=== PATIENT | male | born 1985 | race Caucasian/White ===

== ENCOUNTER → 2018-02-27 | Outpatient (CLI) | payer OTHER ==
[2018-02-27 19:02] LABS: Cholesterol 266 mg/dL (0-200); Glucose 108 mg/dL (70-110); Triglycerides >1100.0 mg/dL (0.0-149.0)
[2018-02-27 20:13] LABS: Hemoglobin A1C 5.2 % (4.0-6.0)
== END ==
LOC: LABWHC1 11:53
PROVIDERS: ATTEND Psychiatry & Neurology Psychiatry
DX: Z51.81 Encounter for therapeutic drug level monitoring (principal); Z79.899 Other long term (current) drug therapy
CPT/HCPCS: 36415; 80061; 82947; 83036; 84439; 84443

== ENCOUNTER 2018-03-25 11:58 | Emergency (ER) | payer OTHER ==
[2018-03-25] MEDS ORDERED: methylPREDNISolone SOD SUCCI 125 MG/2 ML VIAL IM ONE (12:54)
[2018-03-25] MEDS ORDERED: BENZONATATE 100 MG CAP PO STA (12:54)
--- NOTE | 2018-03-25 12:55 | ED ---
URI HPI - General Chief Complaint: Upper Respiratory Infection Stated Complaint: cough/congestion Time Seen by Provider: 03/25/18 12:24 Source: patient Mode of arrival: ambulatory Limitations: no limitations - History of Present Illness Initial Comments: 32-year-old male with past medical history of hypertension and hyperlipidemia presenting today for chief complaint of cough sore throat and chills. Patient states the past day he has had cough and sore throat. He states at times he feels he has chills. He states he has not recorded his temperature at home. Upon arrival initial temperature read as afebrile. Patient did feel palpably warm. Patient admits to chills at this time. Patient denies sputum production , neck stiffness, photophobia, rash, ear pain, nausea, vomiting, diarrhea, headache, dizziness. Patient did admit to body aches. Patient denies any chest pain, dyspnea, dyspnea on exertion. Upon arrival patient appears well nontoxic. Vital signs reveal HR 105, consistent with suspect fever. Repeat temperature later in visit 100.8F. she has not had flu vaccination. - Related Data Previous Rx's Medication Instructions Recorded Albuterol Inhaler [Ventolin Hfa 2 puff INHALATION Q4HR PRN #1 12/27/13 Inhaler] inhaler Azithromycin [Zithromax Z-pack] 250 mg PO DIRECTED #6 tab 12/27/13 predniSONE 50 mg PO DAILY #5 tab 12/27/13 Amoxicillin/Potassium Clav 1 each PO Q12HR #20 tab 09/29/14 [Augmentin 875-125 Tablet] Mupirocin 2% Oint [Bactroban Oint] 1 applic TOPICAL TID #1 gm 09/29/14 Oseltamivir [Tamiflu] 75 mg PO Q12HR 5 Days #10 cap 03/25/18 Allergies Allergy/AdvReac Type Severity Reaction Status Date / Time No Known Allergies Allergy Verified 03/25/18 12:14 Review of Systems ROS Statement: Those systems with pertinent positive or pertinent negative responses have been documented in the HPI. ROS Other: All systems not noted in ROS Statement are negative. Past Medical History Past Medical History: Asthma History of Any Multi-Drug Resistant Organisms: None Reported Past Surgical History: No Surgical Hx Reported Past Psychological History: ADD/ADHD, Anxiety Smoking Status: Current every day smoker Past Alcohol Use History: None Reported Past Drug Use History: None Reported General Exam - General Exam Comments Initial Comments: General: The patient is awake and alert, in no distress, and does not appear acutely ill. Eye: Pupils are equal, round and reactive to light, extra-ocular movements are intact. No nystagmus. There is normal conjunctiva bilaterally. No signs of icterus. Ears, nose, mouth and throat: There are moist mucous membranes and no oral lesions. Oropharynx mildly erythematous, no tonsillar enlargement exudates or lesions. Uvula midline. Tympanic membranes within normal limits bilaterally. Anterior cervical lymph nodes neuropathy. Neck: The neck is supple, there is no tenderness or JVD. No nuchal rigidity, no photophobia. Cardiovascular: There is a regular rate and rhythm. No murmur, rub or gallop is appreciated. Respiratory: Lungs are clear to auscultation, respirations are non-labored, breath sounds are equal. No wheezes, stridor, rales, or rhonchi. No findings consistent with consolidation. No abdominal breathing or costal retractions. Dry cough on exam no specific characteristic Gastrointestinal: Soft, non-distended, non-tender abdomen without masses or organomegaly noted. There is no rebound or guarding present. Bowel sounds are unremarkable. Musculoskeletal: Normal ROM, no tenderness. Strength 5/5. Sensation intact. Pulses equal bilaterally 2+. Neurological: A&O x 3. CN II-XII intact, There are no obvious motor or sensory deficits. Coordination appears grossly intact. Speech is normal. Skin: Skin is warm and dry and no rashes or lesions are noted. Psychiatric: Cooperative, appropriate mood & affect, normal judgment. Limitations: no limitations Course Vital Signs 03/25/18 03/25/18 03/25/18 12:12 12:19 14:57 Temperature 98.4 F 100.8 F H Pulse Rate 105 H 85 Respiratory 18 20 18 Rate Blood Pressure 121/81 119/87 O2 Sat by Pulse 96 97 Oximetry Medical Decision Making - Medical Decision Making 32-year-old male, influenza A positive. History consistent with laboratory studies. Chest x-ray negative for acute cardiopulmonary process. Patient will be treated outpatient with Tamiflu and supportive measures. Patient does not appear toxic. At this time I feel patient is stable for discharge with outpatient follow-up and return for any worsening or concerning symptoms. Patient verbalized understanding agreeable plan. Patient discharged appearing well I did discuss the case attending provider Dr. Leal prior to patient's discharge. Patient denied questions upon discharge. - Lab Data Lab Results 03/25/18 03/25/18 Range/Units 13:35 13:35 Influenza Type A RNA Detected H (Not Detectd) Influenza Type B (PCR) Not Detected (Not Detectd) Group A Strep Rapid Negative (Negative) Disposition Clinical Impression: Influenza A Disposition: HOME SELF-CARE Condition: Good Instructions (If sedation given, give patient instructions): Influenza (ED) Additional Instructions: Please use medication as discussed. Please follow-up with family doctor in the next 2 days of symptoms have not improved. Please return to emergency room if the symptoms increase or worsen or for any other concerns. Prescriptions: Oseltamivir [Tamiflu] 75 mg PO Q12HR 5 Days #10 cap Is patient prescribed a controlled substance at d/c from ED?: No Referrals: Katharina Galvan DO [Primary Care Provider] - 1-2 days Time of Disposition: 14:28
--- NOTE | 2018-03-25 13:18 | XR ---
EXAMINATION TYPE: XR chest 2V DATE OF EXAM: 03/25/2018 COMPARISON: 12/27/13 HISTORY: Chest pain TECHNIQUE: Frontal and lateral views of the chest are obtained. FINDINGS: There is no focal air space opacity. No evidence for pneumothorax. No pleural effusion. The cardiac silhouette size is within normal limits. The osseous structures are grossly intact. IMPRESSION: 1. No acute cardiopulmonary process.
[2018-03-25] MEDS ORDERED: predniSONE 20 MG TAB PO STA (13:40)
[2018-03-25] MEDS ORDERED: ACETAMINOPHEN TAB 500 MG TAB PO STA (14:55)
[2018-03-25 14:58] VITALS: BP 119/87; PULSE 85; RESP 18; TEMP 100.8
== END 2018-03-25 15:02 | disposition home or self-care (01) ==
LOC: EC 11:58
DX: J10.1 Influenza due to other identified influenza virus with other respiratory manifestations (principal); F17.200 Nicotine dependence, unspecified, uncomplicated
CPT/HCPCS: 87081; 87430; 87502; 71046; 99283; J7512

== ENCOUNTER → 2018-04-10 | Outpatient (CLI) | payer OTHER ==
[2018-04-10 11:16] LABS: Basophils # (A) 0.1 k/uL (0-0.2); Basophils % (A) 1 %; Eosinophils # (A) 0.2 k/uL (0-0.7); Eosinophils % (A) 3 %; HCT 45.4 % (39.0-53.0); HGB 15.2 gm/dL (13.0-17.5); Lymphocytes # (A) 1.8 k/uL (1.0-4.8); Lymphocytes % (A) 29 %; MCH 29.1 pg (25.0-35.0); MCHC 33.5 g/dL (31.0-37.0); MCV 86.9 fL (80.0-100.0); Mean Platelet Volume 7.7; Monocytes # (A) 0.5 k/uL (0-1.0); Monocytes % (A) 7 %; Neutrophils # (A) 3.6 k/uL (1.3-7.7); Neutrophils % (A) 58 %; Platelet Count 261 k/uL (150-450); RBC 5.23 m/uL (4.30-5.90); RDW 13.7 % (11.5-15.5); WBC 6.2 k/uL (3.8-10.6)
[2018-04-10 18:44] LABS: Amylase 35 U/L (23-121); Cholesterol 198 mg/dL (0-200); Lipase 35 U/L (14-60)
[2018-04-11 08:30] LABS: Glucose 94
[2018-04-11 08:31] LABS: Potassium 4.4; Sodium 141
[2018-04-11 08:32] LABS: Chloride 105
[2018-04-11 08:33] LABS: Carbon Dioxide 24.5
[2018-04-11 08:34] LABS: Anion Gap 11.5
[2018-04-11 08:39] LABS: Calcium 9.8
[2018-04-11 08:41] LABS: Total Protein 6.7
[2018-04-11 08:43] LABS: Albumin/Globulin Ratio 1.79; Total Bilirubin 0.4
[2018-04-11 08:44] LABS: AST 28
[2018-04-11 08:45] LABS: ALT 33; Alkaline Phosphatase 61
== END | disposition home or self-care (01) ==
LOC: LABWHC1 10:26
PROVIDERS: ATTEND Family Medicine
DX: E78.1 Pure hyperglyceridemia (principal); E78.5 Hyperlipidemia, unspecified
CPT/HCPCS: 36415; 80053; 80061; 82150; 83690; 83721; 85025

== ENCOUNTER 2018-04-30 22:34 | Emergency (ER) | payer OTHER ==
[2018-04-30 23:26] VITALS: RESP 18
[2018-05-01 01:06] LABS: Appearance,Urine Clear (Clear); Bilirubin,Urine Negative (Negative); Blood,Urine Negative (Negative); Color,Urine Light Yellow; Glucose,Urine (UA) Negative (Negative); Ketones,Urine Negative (Negative); Leukocyte Esterase,Urine Negative (Negative); Nitrite,Urine Negative (Negative); Protein,Urine Negative (Negative); Specific Gravity,Urine 1.009 (1.001-1.035); Urobilinogen,Urine <2.0 mg/dL (<2.0)
--- NOTE | 2018-05-01 02:18 | ED ---
General Adult HPI - General Source: patient, RN notes reviewed, old records reviewed Mode of arrival: ambulatory Limitations: no limitations <Jack Pearson - Last Filed: 05/01/18 02:20> <Cortney Alfred - Last Filed: 05/03/18 01:01> - General Chief complaint: Urogenital Stated complaint: Abd Pain Time Seen by Provider: 05/01/18 00:21 - History of Present Illness Initial comments: 32-year-old male patient no pertinent past medical history presents to ED with chief complaint of blood in his sperm. Patient reports that he first noticed this yesterday. Patient states that he had one occurrence with a moderate amount of blood in his sperm. On 3 evaluations of his sperm since his sperm is now at a almost normal color, small amount of rust tinged per patient. Patient is not having any pain. Patient denies any testicular any penile pain. Patient has any ulcerations or any urethral discharge. Patient does wish to have evaluation of a "bump" in his perineum. Patient denies all other complaints. Patient reports that he wishes to be checked for STD eyes, however does not wish to be treated for STI empirically. Systemic: Pt denies fatigue, myalgia, fever/chills, rash. Pt denies weakness, night sweats, weight loss. Neuro: Pt denies headache, visual disturbances, syncope or pre-syncope. HEENT: Pt denies ocular discharge or irritation, otalgia, rhinorrhea, pharyngitis or notable lymphadenopathy. Cardiopulmonary: Pt denies chest pain, SOB, heart palpitations, dyspnea on exertion. Abdominal/GI: Pt denies abdominal pain, n/v/d. : Pt denies dysuria, burning w/ urination, frequency/urgency. Denies new onset urinary or bowel incontinence. MSK: Pt denies myalgia, loss of strength or function in extremities. Neuro: Pt denies new onset weakness, paresthesias. (Jack Pearson) - Related Data Previous Rx's Medication Instructions Recorded Albuterol Inhaler [Ventolin Hfa 2 puff INHALATION Q4HR PRN #1 12/27/13 Inhaler] inhaler Azithromycin [Zithromax Z-pack] 250 mg PO DIRECTED #6 tab 12/27/13 predniSONE 50 mg PO DAILY #5 tab 12/27/13 Amoxicillin/Potassium Clav 1 each PO Q12HR #20 tab 09/29/14 [Augmentin 875-125 Tablet] Mupirocin 2% Oint [Bactroban Oint] 1 applic TOPICAL TID #1 gm 09/29/14 Oseltamivir [Tamiflu] 75 mg PO Q12HR 5 Days #10 cap 03/25/18 Allergies Allergy/AdvReac Type Severity Reaction Status Date / Time No Known Allergies Allergy Verified 03/25/18 12:14 Review of Systems ROS Other: All systems not noted in ROS Statement are negative. <Jack Pearson - Last Filed: 05/01/18 02:20> ROS Other: All systems not noted in ROS Statement are negative. <Cortney Alfred - Last Filed: 05/03/18 01:01> ROS Statement: Those systems with pertinent positive or pertinent negative responses have been documented in the HPI. Past Medical History Past Medical History: Asthma History of Any Multi-Drug Resistant Organisms: None Reported Past Surgical History: No Surgical Hx Reported Past Psychological History: ADD/ADHD, Anxiety Smoking Status: Current every day smoker Past Alcohol Use History: None Reported Past Drug Use History: None Reported <Jack Pearson - Last Filed: 05/01/18 02:20> General Exam Limitations: no limitations <Jack Pearson - Last Filed: 05/01/18 02:20> - General Exam Comments Initial Comments: Constitutional: NAD, AOX3, Pt has pleasant affect. HEENT: NC/AT, trachea midline, neck supple, no lymphadenopathy. Posterior pharynx non erythematous, without exudates. External ears appear normal, without discharge. Mucous membranes moist. Eyes PERRLA, EOM intact. There is no scleral icterus. No pallor noted. Cardiopulmonary: RRR, no murmurs, rubs or gallops, no JVD noted. Lungs CTAB in anterior and posterior bullard. No peripheral edema. Abdominal exam: Abdomen soft and non-distended. Abdomen non-tender to palpation in all 4 quadrants. Bowel sounds active in LLQ. No hepatosplenomegaly. No ecchymosis Neuro: CN II-XII grossly intact. No nuchal rigidity. MSK: No posterior calf tenderness bilaterally, homans sign negative bilaterally. Posterior tibialis and radial pulse +2 bilaterally. Sensation intact in upper and lower extremities. Full active ROM in upper and lower extremities, 5/5 stregnth. Gu: No ulcerations or lesions noted on ES or scrotum. No penile discharge noted. No testicular tenderness. Cremasteric reflex intact. No high riding testicle or blue dot sign. Perineum evaluated, area in question is a skin tag. No erythema or fluctuance or discharge. (Jack Pearson) Course Vital Signs 04/30/18 05/01/18 23:22 02:20 Temperature 98.0 F 97.5 F L Pulse Rate 78 68 Respiratory 18 18 Rate Blood Pressure 150/80 135/96 O2 Sat by Pulse 100 98 Oximetry Medical Decision Making <Jack Pearson - Last Filed: 05/01/18 02:20> <Cortney Alfred - Last Filed: 05/03/18 01:01> - Medical Decision Making 32-year-old male patient no pertinent past medical history presents to ED with chief complaint of blood in his sperm. Patient reports that he first noticed this yesterday. Patient states that he had one occurrence with a moderate amount of blood in his sperm. On 3 evaluations of his sperm since his sperm is now at a almost normal color, small amount of rust tinged per patient. Patient is not having any pain. Patient denies any testicular any penile pain. Patient has any ulcerations or any urethral discharge. Patient does wish to have evaluation of a "bump" in his perineum. Patient denies all other complaints. Patient reports that he wishes to be checked for STD eyes, however does not wish to be treated for STI empirically. Patient vital signs stable, afebrile. Physical exam displayed: No ulcerations or lesions noted on ES or scrotum. No penile discharge noted. No testicular tenderness. Cremasteric reflex intact. No high riding testicle or blue dot sign. Perineum evaluated, area in question is a skin tag. No erythema or fluctuance or discharge. Laboratory investigations displayed a negative urinalysis. Findings were explained to patient at length. Patient was understanding. Patient to follow up with primary care provider for further evaluation. Patient return to ER if any new signs symptoms develop. Case discussed with Dr. Alfred. (Jack Pearson) I was available for consultation in the emergency department. The history and physical exam were done by the midlevel provider. I was consulted for this patient's care. I reviewed the case with the midlevel provider and based on their presentation of the patient, I agree with the assessment, medical decision making and plan of care as documented. (Cortney Alfred) - Lab Data Lab Results 04/30/18 04/30/18 04/30/18 Range/Units 23:52 23:52 23:52 Urine Color Light Yellow Urine Appearance Clear (Clear) Urine pH 6.0 (5.0-8.0) Ur Specific [place] 1.009 (1.001-1.035) Urine Protein Negative (Negative) Urine Glucose (UA) Negative (Negative) Urine Ketones Negative (Negative) Urine Blood Negative (Negative) Urine Nitrite Negative (Negative) Urine Bilirubin Negative (Negative) Urine Urobilinogen <2.0 (<2.0) mg/dL Ur Leukocyte Esterase Negative (Negative) Chlamydia Source Urine Chlamydia DNA (PCR) Negative (Neg,Equiv) N. gonorrhoeae Source Urine N.gonorrhoeae DNA Probe Negative (Neg,Equiv) Disposition Is patient prescribed a controlled substance at d/c from ED?: No <Jack Pearson - Last Filed: 05/01/18 02:20> <Cortney Alfred - Last Filed: 05/03/18 01:01> Clinical Impression: Hematospermia Disposition: HOME SELF-CARE Condition: Stable Additional Instructions: Patient to adhere to previously discussed treatment plan and will take medication(s) as directed. Patient to follow up with PCP in 1-2 days. Patient to return to ED if symptoms do not improve. Please follow-up with primary care provider in 1-2 days for further evaluation. Please return to ER if condition worsens or changes in any way. Follow-up with urology in one to 2 days. Referrals: Katharina Galvan DO [Primary Care Provider] - 1-2 days Dm Mujica MD [STAFF PHYSICIAN] - 1-2 days
[2018-05-01 02:21] VITALS: BP 135/96; PULSE 68; TEMP 97.5
[2018-05-02 15:21] LABS: C. trachomatis,PCR Negative (Neg,Equiv); Chlamydia trachomatis Source Urine
[2018-05-02 16:33] LABS: N. gonorrhoeae,PCR Negative (Neg,Equiv); Neisseria Source Urine
== END 2018-05-01 02:23 | disposition home or self-care (01) ==
LOC: EC 22:34
DX: R36.1 Hematospermia (principal); F17.200 Nicotine dependence, unspecified, uncomplicated
CPT/HCPCS: 81003; 87491; 87591; 99284

== ENCOUNTER → 2018-07-21 | Outpatient (CLI) | payer OTHER ==
[2018-07-21 18:09] LABS: African American GFR (CKD) 145.7 (60.0-200.0); Cholesterol 258 mg/dL (0-200); Glucose 92 mg/dL (70-110); Lithium <0.1 mmol/L (1.0-1.2)
[2018-07-21 18:40] LABS: Triglycerides >1100.0 mg/dL (0.0-149.0)
[2018-07-21 21:20] LABS: Hemoglobin A1C 5.4 % (4.0-6.0)
== END | disposition home or self-care (01) ==
LOC: LABWHC1 12:14
PROVIDERS: ATTEND Psychiatry & Neurology Psychiatry
DX: Z79.899 Other long term (current) drug therapy (principal)
CPT/HCPCS: 36415; 80061; 80178; 82565; 82947; 83036; 84439; 84443; 84520

== ENCOUNTER → 2018-11-17 | Outpatient (CLI) | payer OTHER ==
[2018-11-17 19:21] LABS: African American GFR (CKD) 115.7 (60.0-200.0); Chol/HDL Ratio 6.13; LDL Cholesterol,Calculated 100.4 mg/dL (0.0-131.0); Lithium 0.4 mmol/L (0.5-1.2); VLDL Calculation 53.6 mg/dL (5.00-40.00)
[2018-11-17 20:22] LABS: Hemoglobin A1C 5.2 % (4.0-6.0)
== END | disposition home or self-care (01) ==
LOC: LABWHC1 10:02
PROVIDERS: ATTEND Psychiatry & Neurology Psychiatry
DX: Z51.81 Encounter for therapeutic drug level monitoring (principal); Z79.899 Other long term (current) drug therapy
CPT/HCPCS: 36415; 80061; 80178; 82565; 82947; 83036; 84439; 84443; 84520

== ENCOUNTER 2020-04-15 00:08 | Emergency (ER) | payer OTHER ==
[2020-04-15 00:15] VITALS: BP 129/88; PULSE 90; RESP 18; TEMP 99.2
--- NOTE | 2020-04-15 00:42 | ED ---
General Adult HPI - General Stated complaint: Covid exposure, cough Time Seen by Provider: 04/15/20 00:14 Source: patient Mode of arrival: ambulatory Limitations: no limitations - History of Present Illness Initial comments: 34-year-old male presents emergency Department with chief complaint of covoid exposure. Patient states he is exposed to covid. Patient denies any specific complaints denies any shortness of breath fevers chills nausea vomiting diarrhea constipation no significant cough. - Related Data Previous Rx's Medication Instructions Recorded Albuterol Inhaler (Mhu) [Ventolin 2 puff INHALATION Q4HR PRN #1 12/27/13 Hfa Inhaler (Mhu)] inhaler Azithromycin [Zithromax Z-pack (6 250 mg PO DIRECTED #6 tab 12/27/13 tabs)] predniSONE 50 mg PO DAILY #5 tab 12/27/13 Amoxicillin/Potassium Clav 1 each PO Q12HR #20 tab 09/29/14 [Augmentin 875-125 Tablet] Mupirocin 2% Oint [Bactroban Oint] 1 applic TOPICAL TID #1 gm 09/29/14 Oseltamivir [Tamiflu] 75 mg PO Q12HR 5 Days #10 cap 03/25/18 Allergies Allergy/AdvReac Type Severity Reaction Status Date / Time No Known Allergies Allergy Verified 04/15/20 00:15 Review of Systems ROS Statement: Those systems with pertinent positive or pertinent negative responses have been documented in the HPI. ROS Other: All systems not noted in ROS Statement are negative. Past Medical History Past Medical History: Asthma History of Any Multi-Drug Resistant Organisms: None Reported Past Surgical History: No Surgical Hx Reported Past Psychological History: ADD/ADHD, Anxiety Smoking Status: Current every day smoker Past Alcohol Use History: None Reported Past Drug Use History: None Reported General Exam Limitations: no limitations General appearance: alert, in no apparent distress Head exam: Present: atraumatic, normocephalic, normal inspection Eye exam: Present: normal appearance, PERRL, EOMI. Absent: scleral icterus, conjunctival injection, periorbital swelling ENT exam: Present: normal exam, normal oropharynx, mucous membranes moist Neck exam: Present: normal inspection, full ROM. Absent: tenderness, meningismus, lymphadenopathy Respiratory exam: Present: normal lung sounds bilaterally. Absent: respiratory distress, wheezes, rales, rhonchi, stridor Cardiovascular Exam: Present: regular rate, normal rhythm, normal heart sounds. Absent: systolic murmur, diastolic murmur, rubs, gallop, clicks GI/Abdominal exam: Present: soft, normal bowel sounds. Absent: distended, tenderness, guarding, rebound, rigid Neurological exam: Present: alert, oriented X3 Skin exam: Present: warm, dry, intact, normal color. Absent: rash Course Vital Signs 04/15/20 00:14 Temperature 99.2 F Pulse Rate 90 Respiratory 18 Rate Blood Pressure 129/88 O2 Sat by Pulse 97 Oximetry Medical Decision Making - Medical Decision Making Patient had a negative test is asymptomatic patient be discharged in stable condition. - Lab Data Lab Results 04/15/20 Range/Units 00:24 Coronavirus (PCR) Not Detected (Not Detectd) Disposition Clinical Impression: Exposure to COVID-19 virus Disposition: HOME SELF-CARE Condition: Stable Instructions (If sedation given, give patient instructions): Coronavirus Disease 2019 (COVID-19) Additional Instructions: Please return to the Emergency Department if symptoms worsen or any other concerns. Is patient prescribed a controlled substance at d/c from ED?: No Referrals: None,Stated [Primary Care Provider] - 1-2 days Time of Disposition: 01:25
== END 2020-04-15 01:33 | disposition home or self-care (01) ==
LOC: EC 00:08
DX: Z20.822 Contact with and (suspected) exposure to COVID-19 (principal); F17.200 Nicotine dependence, unspecified, uncomplicated; J45.909 Unspecified asthma, uncomplicated; F41.9 Anxiety disorder, unspecified
CPT/HCPCS: 87635; 99283

== ENCOUNTER 2020-05-10 15:09 | Emergency (ER) | payer OTHER ==
[2020-05-10 15:18] VITALS: PULSE 102; TEMP 98.8
--- NOTE | 2020-05-10 16:42 | ED ---
URI HPI - General Chief Complaint: Upper Respiratory Infection Stated Complaint: COVID Exposure Time Seen by Provider: 05/10/20 16:26 Source: patient Mode of arrival: ambulatory Limitations: no limitations - History of Present Illness Initial Comments: Patient is a 34-year-old male presenting to the emergency Department with concerns of Covid. Patient states he was exposed to his mother that recently tested positive. Patient states yesterday he had a headache and a small cough. He denies any fevers or chills, no shortness of breath or chest pains. He denies any nausea or vomiting, no diarrhea. He states he's been eating and drinking as normal. He has no further complaints at this time. Upon arrival to the ER, his vital signs are stable. - Related Data Previous Rx's Medication Instructions Recorded Albuterol Inhaler (Mhu) [Ventolin 2 puff INHALATION Q4HR PRN #1 12/27/13 Hfa Inhaler (Mhu)] inhaler Azithromycin [Zithromax Z-pack (6 250 mg PO DIRECTED #6 tab 12/27/13 tabs)] predniSONE 50 mg PO DAILY #5 tab 12/27/13 Amoxicillin/Potassium Clav 1 each PO Q12HR #20 tab 09/29/14 [Augmentin 875-125 Tablet] Mupirocin 2% Oint [Bactroban Oint] 1 applic TOPICAL TID #1 gm 09/29/14 Oseltamivir [Tamiflu] 75 mg PO Q12HR 5 Days #10 cap 03/25/18 Allergies Allergy/AdvReac Type Severity Reaction Status Date / Time No Known Allergies Allergy Verified 05/10/20 15:18 Review of Systems ROS Statement: Those systems with pertinent positive or pertinent negative responses have been documented in the HPI. ROS Other: All systems not noted in ROS Statement are negative. Past Medical History Past Medical History: Asthma History of Any Multi-Drug Resistant Organisms: None Reported Past Surgical History: No Surgical Hx Reported Past Psychological History: ADD/ADHD, Anxiety Smoking Status: Current every day smoker Past Alcohol Use History: None Reported Past Drug Use History: None Reported General Exam - General Exam Comments Initial Comments: GENERAL: Patient is well-developed and well-nourished. Patient is nontoxic and in no acute distress. HEAD: Atraumatic, normocephalic. EYES: Pupils equal round and reactive to light, extraocular movements intact, sclera anicteric, conjunctiva are normal. Eyelids were unremarkable. ENT: TMs normal, nares patent, oropharynx clear without exudates. Moist mucous membranes. NECK: Normal range of motion, supple without lymphadenopathy or JVD. LUNGS: Unlabored respirations. Breath sounds clear to auscultation bilaterally and equal. No wheezes rales or rhonchi. HEART: Regular rate and rhythm without murmurs, rubs or gallops. ABDOMEN: Soft, nontender, normoactive bowel sounds. No guarding, no rebound. No masses appreciated. : Deferred MUSCULOSKELETAL: Normal extremities with adequate strength and normal range of motion, no pitting or edema. No clubbing or cyanosis. NEUROLOGICAL: Patient is alert and oriented x 3. Motor and sensory are also intact. Cranial nerves II through XII grossly intact. Symmetrical smile. Normal speech, normal gait. PSYCH: Normal mood, normal affect. SKIN: Warm, Dry, normal turgor, no rashes or lesions noted. Limitations: no limitations Course Vital Signs 05/10/20 15:16 Temperature 98.8 F Pulse Rate 102 H Respiratory 20 Rate Blood Pressure 148/94 O2 Sat by Pulse 97 Oximetry Medical Decision Making - Medical Decision Making Patient is a 34-year-old male with history of mild asthma, presenting for recent Covid exposure. He's had a headache and a mild cough since yesterday. His vitals are stable, afebrile, his exam is unremarkable. Rapid Covid test is positive. Patient does meet criteria for Covid antibody therapy secondary to BMI, however patient declines. He can't treat his symptoms with o [id number] medications as well as Tylenols Motrin. Patient is stable for discharge. Patient is in agreement with this plan of care. Return parameters were discussed with the patient and they verbalized understanding. Case discussed with . - Lab Data Lab Results 05/10/20 Range/Units 16:06 Coronavirus (PCR) Detected A (Not Detectd) Disposition Clinical Impression: COVID-19 Disposition: HOME SELF-CARE Condition: Stable Instructions (If sedation given, give patient instructions): Coronavirus Disease 2019 (COVID-19) Additional Instructions: Please return to the Emergency Department if symptoms worsen or any other concerns. Take Tylenol or Motrin for your symptoms, [id number] cough medications. Is patient prescribed a controlled substance at d/c from ED?: No Referrals: None,Stated [Primary Care Provider] - 1-2 days Time of Disposition: 17:00
[2020-05-10 17:04] VITALS: RESP 18
[2020-05-10 17:11] VITALS: BP 158/85
== END 2020-05-10 17:11 | disposition home or self-care (01) ==
LOC: EC 15:09
DX: U07.1 COVID-19 (principal); J45.909 Unspecified asthma, uncomplicated; F41.9 Anxiety disorder, unspecified; F90.9 Attention-deficit hyperactivity disorder, unspecified type; F17.200 Nicotine dependence, unspecified, uncomplicated
CPT/HCPCS: 87635; 99284

== ENCOUNTER 2021-06-08 19:17 | Emergency (ER) | payer OTHER ==
[2021-06-08 19:26] VITALS: BP 120/68; PULSE 100; RESP 18; TEMP 98.3
--- NOTE | 2021-06-08 21:09 | XR ---
EXAMINATION TYPE: XR chest 2V DATE OF EXAM: 06/08/2021 9:04 PM COMPARISON: Chest radiographs from 03/25/2018 TECHNIQUE: XR chest 2V Frontal and lateral views of the chest. CLINICAL INDICATION:Male, 35 years old with history of chest pain, cough; FINDINGS: Lungs/Pleura: There is no evidence of pleural effusion, focal consolidation, or pneumothorax. Pulmonary vascularity: Unremarkable. Heart/mediastinum: Cardiomediastinal silhouette is unremarkable. Musculoskeletal: No acute osseous pathology. IMPRESSION: No acute cardiopulmonary disease/process.
--- NOTE | 2021-06-08 21:34 | ED ---
URI HPI - General Chief Complaint: Upper Respiratory Infection Stated Complaint: Chest Pain, Headache, Cough Time Seen by Provider: 06/08/21 20:36 Source: patient, RN notes reviewed Mode of arrival: ambulatory Limitations: no limitations - History of Present Illness Initial Comments: This is a 35-year-old male who presents to the emergency department for coughing and congestion. States that symptoms have been present for 2 days. One of his friends tested positive for Covid, and he is worried that he may have caught this from him. Denies any fevers or chills. He does report some sharp chest pain with inhalation. Denies any shortness of breath. He has not taken any mhyy-mtl-[id number] treatment for this. MD Complaint: cough, nasal congestion - Related Data Previous Rx's Medication Instructions Recorded Albuterol Inhaler (Mhu) [Ventolin 2 puff INHALATION Q4HR PRN #1 12/27/13 Hfa Inhaler (Mhu)] inhaler Azithromycin [Zithromax Z-pack (6 250 mg PO DIRECTED #6 tab 12/27/13 tabs)] predniSONE 50 mg PO DAILY #5 tab 12/27/13 Amoxicillin/Potassium Clav 1 each PO Q12HR #20 tab 09/29/14 [Augmentin 875-125 Tablet] Mupirocin 2% Oint [Bactroban Oint] 1 applic TOPICAL TID #1 gm 09/29/14 Oseltamivir [Tamiflu] 75 mg PO Q12HR 5 Days #10 cap 03/25/18 Allergies Allergy/AdvReac Type Severity Reaction Status Date / Time No Known Allergies Allergy Verified 05/10/20 15:18 Review of Systems ROS Statement: Those systems with pertinent positive or pertinent negative responses have been documented in the HPI. ROS Other: All systems not noted in ROS Statement are negative. Constitutional: Denies: fever, chills ENT: Reports: congestion. Denies: ear pain, throat pain Respiratory: Reports: cough. Denies: dyspnea Cardiovascular: Denies: chest pain, palpitations Gastrointestinal: Denies: abdominal pain, nausea, vomiting, diarrhea Skin: Denies: rash Neurological: Reports: headache Past Medical History Past Medical History: Asthma History of Any Multi-Drug Resistant Organisms: None Reported Past Surgical History: No Surgical Hx Reported Past Psychological History: ADD/ADHD, Anxiety Smoking Status: Current every day smoker Past Alcohol Use History: None Reported Past Drug Use History: None Reported General Exam Limitations: no limitations General appearance: alert, in no apparent distress Head exam: Present: atraumatic, normocephalic, normal inspection Respiratory exam: Present: normal lung sounds bilaterally. Absent: respiratory distress, wheezes, rales, rhonchi, stridor Cardiovascular Exam: Present: regular rate, normal rhythm, normal heart sounds. Absent: systolic murmur, diastolic murmur, rubs, gallop, clicks Neurological exam: Present: alert, oriented X3, CN II-XII intact Psychiatric exam: Present: normal affect, normal mood Skin exam: Present: warm, dry, intact, normal color. Absent: rash Course Vital Signs 06/08/21 19:25 Temperature 98.3 F Pulse Rate 100 Respiratory 18 Rate Blood Pressure 120/68 O2 Sat by Pulse 96 Oximetry Medical Decision Making - Medical Decision Making This is a 35-year-old male who presents to the emergency department for coughing and congestion. COVID and influenza testing negative. Chest x-ray revealed no acute cardiopulmonary process. Patient advised that this is likely a viral infection and we do not begin antibiotics until approximately the 10 day rosalee. Advised to continue with symptomatic care, including remaining well-hydrated, using ibuprofen and Tylenol as needed for fevers and body aches, and using [id number] cold medication. Return precautions reviewed in depth, the patient is instructed to return to the emergency department with any new, worsening, or concerning symptoms. Patient verbalized understanding. This case was discussed in detail with the attending ED physician. Presentation, findings, and treatment plan discussed in detail as well. - Lab Data Lab Results 06/08/21 Range/Units 19:27 Influenza Type A (PCR) Not Detected (Not Detectd) Influenza Type B (PCR) Not Detected (Not Detectd) RSV (PCR) Not Detected (Not Detectd) SARS-CoV-2 (PCR) Not Detected (Not Detectd) - Radiology Data Radiology results: report reviewed, image reviewed Disposition Clinical Impression: Viral upper respiratory illness Disposition: HOME SELF-CARE Instructions (If sedation given, give patient instructions): Upper Respiratory Infection (ED) Additional Instructions: Return to the emergency department with any new, worsening, or concerning symptoms. Continue with symptomatic treatment, including remaining well hydrated, using ibuprofen and Tylenol for pain and fevers, and using [id number] cold medication as needed. Follow up with your primary care provider in 1 to 2 days. Is patient prescribed a controlled substance at d/c from ED?: No Referrals: None,Stated [Primary Care Provider] - 1-2 days
== END 2021-06-08 21:56 | disposition home or self-care (01) ==
LOC: EC 19:17
DX: J06.9 Acute upper respiratory infection, unspecified (principal); Z20.822 Contact with and (suspected) exposure to COVID-19; J45.909 Unspecified asthma, uncomplicated; F17.200 Nicotine dependence, unspecified, uncomplicated; Z79.51 Long term (current) use of inhaled steroids; Z79.52 Long term (current) use of systemic steroids
CPT/HCPCS: 71046; 87636; 99284

== ENCOUNTER 2022-09-17 17:25 | Emergency (ER) | payer OTHER ==
[2022-09-17 17:29] VITALS: TEMP 98.2
--- NOTE | 2022-09-17 19:07 | ED ---
General Adult HPI - General Chief complaint: Extremity Injury, Upper Stated complaint: right shoulder pain Time Seen by Provider: 09/17/22 18:30 Source: patient Mode of arrival: ambulatory Limitations: no limitations - History of Present Illness Initial comments: Dictation was produced using [employer] dictation software. please excuse any grammatical, word or spelling errors. Chief Complaint: 37-year-old male with 3-4 days of shoulder pain History of Present Illness: 37-year-old male presents to emergency department right shoulder pain. Patient has been having shoulder pain for the last 3-4 days. Patient states he woke more pain. States that in turn shoulder. Patient also trauma. No setting. The ROS documented in this emergency department record has been reviewed and confirmed by me. Those systems with pertinent positive or negative responses have been documented in the HPI. All other systems are other negative and/or noncontributory. - Related Data Previous Rx's Medication Instructions Recorded Albuterol Inhaler [Ventolin Hfa 2 puff INHALATION Q4HR PRN #1 12/27/13 Inhaler] inhaler Azithromycin [Zithromax Z-pack (6 250 mg PO DIRECTED #6 tab 12/27/13 tabs)] predniSONE 50 mg PO DAILY #5 tab 12/27/13 Amoxicillin/Potassium Clav 1 each PO Q12HR #20 tab 09/29/14 [Augmentin 875-125 Tablet] Mupirocin 2% Oint [Bactroban Oint] 1 applic TOPICAL TID #1 gm 09/29/14 Oseltamivir [Tamiflu] 75 mg PO Q12HR 5 Days #10 cap 03/25/18 Allergies Allergy/AdvReac Type Severity Reaction Status Date / Time No Known Allergies Allergy Verified 09/17/22 17:28 Review of Systems ROS Statement: Those systems with pertinent positive or pertinent negative responses have been documented in the HPI. ROS Other: All systems not noted in ROS Statement are negative. Past Medical History Past Medical History: Asthma History of Any Multi-Drug Resistant Organisms: None Reported Past Surgical History: No Surgical Hx Reported Past Psychological History: ADD/ADHD, Anxiety Smoking Status: Current every day smoker Past Alcohol Use History: None Reported Past Drug Use History: None Reported General Exam - General Exam Comments Initial Comments: PHYSICAL EXAM: General Impression: Alert and oriented x3, not in acute distress HEENT: Normocephalic atraumatic, extra-ocular movements intact, pupils equal and reactive to light bilaterally, mucous membranes moist. Cardiovascular: Heart regular rate and rhythm Chest: Able to complete full sentences, no retractions, no tachypnea Musculoskeletal: Pulses present and equal in all extremities, no peripheral edema Motor: no focal deficits noted Right shoulder: With active abduction, pain elicited with internal rotation of the shoulder Neurological: CN II-XII grossly intact, no focal motor or sensory deficits noted Skin: Intact with no visualized rashes Psych: Normal affect and mood Limitations: no limitations Course Vital Signs 09/17/22 17:26 Temperature 98.2 F Pulse Rate 87 Respiratory 20 Rate Blood Pressure 121/82 O2 Sat by Pulse 98 Oximetry Medical Decision Making - Medical Decision Making Was pt. sent in by a medical professional or institution (DIANA Overton, HALL MANAGER, urgent care, hospital, or alf...) When possible be specific @ -No Did you speak to anyone other than the patient for history (EMS, parent, family, police, friend...)? What history was obtained from this source @ -No Did you review nursing and triage notes (agree or disagree)? Why? @ -I reviewed and agree with nursing and triage notes Were old charts reviewed (outside hosp., previous admission, EMS record, old EKG, old radiological studies, urgent care reports/EKG's, alf records)? Report findings @ -No old charts were reviewed Differential Diagnosis (chest pain, altered mental status, abdominal pain women, abdominal pain men, vaginal bleeding, musculoskeletal, weakness, fever, dyspnea, syncope, headache, dizziness, GI bleed, back pain, seizure, CVA, palpatations, mental health)? @ -not applicable EKG interpreted by me (3pts min.). @ -None done X-rays interpreted by me (1pt min.). @ -Shoulder x-ray is unremarkable CT interpreted by me (1pt min.). @ -None done U/S interpreted by me (1pt. min.). @ -None done What testing was considered but not performed or refused? (CT, X-rays, U/S, labs)? Why? @ -None What meds were considered but not given or refused? Why? @ -None Did you discuss the management of the patient with other professionals (professionals i.e. Dr., PA, HALL MANAGER, lab, RT, psych nurse, social work administrator, early childhood worker, teacher, senior officer, window caser)? Give summary @ -No Was smoking cessation discussed for >3mins.? @ -No Was critical care preformed (if so, how long)? @ -No Were there social determinants of health that impacted care today? How? (Homelessness, low income, unemployed, alcoholism, drug addiction, transportati on, low edu. Level, literacy, decrease access to med. care, fci, rehab)? @ -No Was there de-escalation of care discussed even if they declined (Discuss DNR or withdrawal of care, Hospice)? DNR status @ -No What co-morbidities impacted this encounter? (DM, HTN, Smoking, COPD, CAD, Cancer, CVA, ARF, Chemo, Hep., AIDS, mental health diagnosis, sleep apnea, morbid obesity)? @ -None Was patient admitted / discharged? Hospital course, mention meds given and route, prescriptions, significant lab abnormalities, going to OR and other pertinent info. @ -37-year-old male with shoulder pain. Vital signs stable. Clinical presentation suspicious for rotator cuff injury. Patient discharged given referral to orthopedic surgery for outpatient management. Undiagnosed new problem with uncertain prognosis? @ -No Drug Therapy requiring intensive monitoring for toxicity (Heparin, Nitro, Insulin, Cardizem)? @ -No Were any procedures done? @ -No Diagnosis/symptom? Acute, or Chronic, or Acute on Chronic? Uncomplicated (without systemic symptoms) or Complicated (systemic symptoms)? @ -Rotator cuff injury Side effects of treatment? @ -No Exacerbation, Progression, or Severe Exacerbation? @ -No Poses a threat to life or bodily function? How? (Chest pain, [place], [place], pneumonia, PE, COPD, DKA, ARF, appy, cholecystitis, CVA, Diverticulitis, Homicidal, Suicidal, threat to staff... and all critical care pts) @ -yes Disposition Clinical Impression: Shoulder pain Disposition: HOME SELF-CARE Condition: Good Instructions (If sedation given, give patient instructions): Shoulder Pain (ED) Is patient prescribed a controlled substance at d/c from ED?: No Referrals: Jack Phan MD [STAFF PHYSICIAN] - 1-2 days Time of Disposition: 19:59
--- NOTE | 2022-09-17 19:26 | XR ---
EXAMINATION TYPE: XR shoulder complete 3 views RT DATE OF EXAM: 09/17/2022 Comparison: None Clinical History: 37-year-old male shoulder pain Findings: Mild soft tissue swelling overlying the AC joint. No abnormal offset at the AC joint or joint widenin g. Subacromial space is preserved. No acute fracture, subluxation, dislocation. Impression: Mild soft tissue swelling overlying the shoulder. No acute osseous abnormality seen.
[2022-09-17 20:05] VITALS: BP 105/70; PULSE 75; RESP 18
== END 2022-09-17 21:07 | disposition home or self-care (01) ==
LOC: EC 17:25
DX: S46.001A Unspecified injury of muscle(s) and tendon(s) of the rotator cuff of right shoulder, initial encounter (principal); J45.909 Unspecified asthma, uncomplicated; F17.200 Nicotine dependence, unspecified, uncomplicated; X58.XXXA Exposure to other specified factors, initial encounter
CPT/HCPCS: 99283

== ENCOUNTER → 2022-12-18 | Outpatient (CLI) | payer OTHER ==
[2022-12-18 22:59] LABS: Basophils # (A) 0.08 X 10*3/uL (0.00-0.10); Basophils % (A) 1.2 %; Eosinophils # (A) 0.21 X 10*3/uL (0.04-0.35); Eosinophils % (A) 3.1 %; HCT 48.5 % (39.6-50.0); HGB 16.7 g/dL (13.0-17.0); Lymphocytes # (A) 2.14 X 10*3/uL (0.90-5.00); Lymphocytes % (A) 31.5 %; MCH 30.1 pg (27.0-32.0); MCHC 34.4 g/dL (32.0-37.0); MCV 87.4 FL (80.0-97.0); Mean Platelet Volume 11.4 FL (9.5-12.2); Monocytes # (A) 0.62 X 10*3/uL (0.20-1.00); Monocytes % (A) 9.1 %; NRBC Per 100 WBC 0 X 10*3/uL (0.00-0.01); Neutrophils # (A) 3.74 X 10*3/uL (1.80-7.70); Platelet Count 238 X 10*3/uL (140-440); RBC 5.55 X 10*6/uL (4.40-5.60); RDW 13.3 % (11.5-14.5)
[2022-12-18 23:35] LABS: Chol/HDL Ratio 24.59 Ratio
[2022-12-19 08:46] LABS: ALT 25 U/L (10-49); AST 25 U/L (14-35); Albumin 4.2 g/dL (3.8-4.9); Albumin/Globulin Ratio 1.62 Ratio (1.60-3.17); Alkaline Phosphatase 65 U/L (41-126); BUN/Creat Ratio 20.14 Ratio (12.00-20.00); Bilirubin, Conjugated <0.20 mg/dL (0.20-0.40); Blood Urea Nitrogen 14.1 mg/dL (9.0-27.0); Calcium 9.6 mg/dL (8.7-10.3); Carbon Dioxide 22.2 mmol/L (21.6-31.8); Chloride 103 mmol/L (96-109); Globulin 2.6 g/dL (1.6-3.3); Glucose 94 mg/dL (70-110); Potassium 4.4 mmol/L (3.5-5.5); Sodium 137 mmol/L (135-145); Total Bilirubin 0.2 mg/dL (0.3-1.2); Total Protein 6.8 g/dL (6.2-8.2)
[2022-12-19 09:13] LABS: Bilirubin,Unconjugated >0 mg/dL (0.2-1.0)
== END | disposition home or self-care (01) ==
LOC: LABWHC1 09:50
PROVIDERS: ATTEND Nurse Practitioner Psychiatric/Mental Health
DX: Z79.899 Other long term (current) drug therapy (principal)
CPT/HCPCS: 36415; 80053; 80061; 82248; 83036; 83721; 84439; 84443; 85025

== ENCOUNTER 2023-01-03 12:51 | Emergency (ER) | payer OTHER ==
--- NOTE | 2023-01-03 13:04 | ED ---
ENT HPI - General Chief complaint: ENT Stated complaint: throat pain Time Seen by Provider: 01/03/23 13:04 Source: patient, RN notes reviewed Mode of arrival: ambulatory Limitations: no limitations - History of Present Illness Initial comments: 37-year-old male presents emergency from chief complaint of sore throat, congestion cough. Patient states symptoms started last 24 hours. Patient states he just feels unwell. Patient states he has possible fever. - Related Data Previous Rx's Medication Instructions Recorded Albuterol Inhaler [Ventolin Hfa 2 puff INHALATION Q4HR PRN #1 12/27/13 Inhaler] inhaler Azithromycin [Zithromax Z-pack (6 250 mg PO DIRECTED #6 tab 12/27/13 tabs)] predniSONE 50 mg PO DAILY #5 tab 12/27/13 Amoxicillin/Potassium Clav 1 each PO Q12HR #20 tab 09/29/14 [Augmentin 875-125 Tablet] Mupirocin 2% Oint [Bactroban Oint] 1 applic TOPICAL TID #1 gm 09/29/14 Oseltamivir [Tamiflu] 75 mg PO Q12HR 5 Days #10 cap 03/25/18 Allergies Allergy/AdvReac Type Severity Reaction Status Date / Time No Known Allergies Allergy Verified 01/03/23 13:03 Review of Systems ROS Statement: Those systems with pertinent positive or pertinent negative responses have been documented in the HPI. ROS Other: All systems not noted in ROS Statement are negative. Past Medical History Past Medical History: Asthma History of Any Multi-Drug Resistant Organisms: None Reported Past Surgical History: No Surgical Hx Reported Past Psychological History: ADD/ADHD, Anxiety Smoking Status: Current every day smoker Past Alcohol Use History: None Reported Past Drug Use History: None Reported General Exam - General Exam Comments Initial Comments: Visual Physical Exam Vital signs reviewed General: Well-appearing, nontoxic, no acute distress. Head: Normocephalic, atraumatic Eyes: PERRLA, EOMI ENT: Airway patent Chest: Nonlabored breathing Skin: No visual rash, normal skin tone Neuro: Alert and oriented 3 Musculoskeletal: No gross abnormalities Limitations: no limitations General appearance: alert, in no apparent distress Head exam: Present: atraumatic, normocephalic, normal inspection Eye exam: Present: normal appearance, PERRL, EOMI. Absent: scleral icterus, conjunctival injection, periorbital swelling ENT exam: Present: mucous membranes moist, TM's normal bilaterally. Absent: normal oropharynx (Minimal posterior pharynx erythematous) Neck exam: Present: normal inspection, full ROM. Absent: tenderness, meningismus, lymphadenopathy Respiratory exam: Present: normal lung sounds bilaterally. Absent: respiratory distress, wheezes, rales, rhonchi, stridor Cardiovascular Exam: Present: regular rate, normal rhythm, normal heart sounds. Absent: systolic murmur, diastolic murmur, rubs, gallop, clicks Course Vital Signs 01/03/23 12:59 Temperature 98.0 F Pulse Rate 89 Respiratory 17 Rate Blood Pressure 159/83 O2 Sat by Pulse 96 Oximetry Medical Decision Making - Medical Decision Making I completed the quick note portion of this chart signed Brijesh Hale PA-C Was pt. sent in by a medical professional or institution (DIANA Overton, HEALTH CLUB ATTENDANT, urgent care, hospital, or alf...) When possible be specific @ -No Did you speak to anyone other than the patient for history (EMS, parent, family, police, friend...)? What history was obtained from this source @ -No Did you review nursing and triage notes (agree or disagree)? Why? @ -I reviewed and agree with nursing and triage notes Were old charts reviewed (outside hosp., previous admission, EMS record, old EKG, old radiological studies, urgent care reports/EKG's, alf records)? Report findings @ -No old charts were reviewed Differential Diagnosis (chest pain, altered mental status, abdominal pain women, abdominal pain men, vaginal bleeding, weakness, fever, dyspnea, syncope, headache, dizziness, GI bleed, back pain, seizure, CVA, palpatations, mental health, musculoskeletal)? @ -Acute pharyngitis, strep, tonsillitis, EKG interpreted by me (3pts min.). @ -None X-rays interpreted by me (1pt min.). @ -None done CT interpreted by me (1pt min.). @ -None done U/S interpreted by me (1pt. min.). @ -None done What testing was considered but not performed or refused? (CT, X-rays, U/S, labs)? Why? @ -None What meds were considered but not given or refused? Why? @ -None Did you discuss the management of the patient with other professionals (professionals i.e. , PA, HEALTH CLUB ATTENDANT, lab, RT, psych nurse, social work case manager, technical administrator, teacher, state highway police officer, case planner)? Give summary @ -No Was smoking cessation discussed for >3mins.? @ -No Was critical care preformed (if so, how long)? @ -No Were there social determinants of health that impacted care today? How? (Homelessness, low income, unemployed, alcoholism, drug addiction, transportation, low edu. Level, literacy, decrease access to med. care, senior care, rehab)? @ -No Was there de-escalation of care discussed even if they declined (Discuss DNR or withdrawal of care, Hospice)? DNR status @ -No What co-morbidities impacted this encounter? (DM, HTN, Smoking, COPD, CAD, Cancer, CVA, ARF, Chemo, Hep., AIDS, mental health diagnosis, sleep apnea, morbid obesity)? @ -None Was patient admitted / discharged? Hospital course, mention meds given and route, prescriptions, significant lab abnormalities, going to OR and other pertinent info. @ -Discharged patient's workup included viral swabs, strep were negative. Patient has viral pharyngitis be discharged with supportive treatment Undiagnosed new problem with uncertain prognosis? @ -No Drug Therapy requiring intensive monitoring for toxicity (Heparin, Nitro, Insulin, Cardizem)? @ -No Were any procedures done? @ -No Diagnosis/symptom? @ -[Acute pharyngitis Acute, or Chronic, or Acute on Chronic? @ -Acute Uncomplicated (without systemic symptoms) or Complicated (systemic symptoms)? @ -Uncomplicated Side effects of treatment? @ -No Exacerbation, Progression, or Severe Exacerbation? @ -No Poses a threat to life or bodily function? How? (Chest pain, [place], [place], pneumonia, PE, COPD, DKA, ARF, appy, cholecystitis, CVA, Diverticulitis, Homicidal, Suicidal, threat to staff... and all critical care pts) @ -No - Lab Data Lab Results 01/03/23 01/03/23 Range/Units 13:07 13:07 Influenza Type A (PCR) Not Detected (Not Detectd) Influenza Type B (PCR) Not Detected (Not Detectd) RSV (PCR) Not Detected (Not Detectd) SARS-CoV-2 (PCR) Not Detected (Not Detectd) Group A Strep (PCR) NOT DETECTED (Not Detectd) Disposition Clinical Impression: Acute pharyngitis Disposition: HOME SELF-CARE Condition: Stable Instructions (If sedation given, give patient instructions): Pharyngitis (ED) Additional Instructions: Please return to the Emergency Department if symptoms worsen or any other concerns. Is patient prescribed a controlled substance at d/c from ED?: No Referrals: None,Stated [Primary Care Provider] - 1-2 days Time of Disposition: 14:31
[2023-01-03 13:28] VITALS: BP 159/83; PULSE 89; RESP 17; TEMP 98
== END 2023-01-03 14:47 | disposition home or self-care (01) ==
LOC: EC 12:51
DX: J02.9 Acute pharyngitis, unspecified (principal); J45.909 Unspecified asthma, uncomplicated; F17.200 Nicotine dependence, unspecified, uncomplicated; Z86.59 Personal history of other mental and behavioral disorders; Z20.822 Contact with and (suspected) exposure to COVID-19
CPT/HCPCS: 87636; 87651; 99283